=== PATIENT | female | born 1975 | race Two or more races ===

== ENCOUNTER 2025-05-06 10:08 | Outpatient (CLI) | payer OTHER ==
[~2025-05-06 10:08] MED LIST: MEDROLPACK PO; VOLTAREN ARTHRI20 GM TOP
== END 2025-05-06 10:10 | disposition home or self-care (01) ==
LOC: RAD 10:08
PROVIDERS: ATTEND Physical Medicine & Rehabilitation
DX: M25.562 Pain in left knee (principal)